=== PATIENT | female | born 1975 | race Caucasian/White ===

== ENCOUNTER 2017-03-27 07:56 | Emergency (ER) | payer MEDICAID ==
[~2017-03-27] VITALS: Ht 175.3 cm; Wt 90.3 kg
[2017-03-27] MEDS ORDERED: KETOROLAC 30 MG/1 ML ONE (08:48)
[2017-03-27] MEDS ORDERED: DIAZEPAM 5 MG TABLET ONE (08:48)
[2017-03-27] MEDS ORDERED: DIAZEPAM 5 MG TABLET PO ONE (09:00)
[2017-03-27] MEDS ORDERED: KETOROLAC 30 MG/1 ML IM ONE (09:00)
[2017-03-27 10:12] VITALS: BP 137/72
== END 2017-03-27 10:14 | disposition home or self-care (01) ==
LOC: ED 09:28
DX: S43.401A Unspecified sprain of right shoulder joint, initial encounter (principal); E11.9 Type 2 diabetes mellitus without complications; W19.XXXA Unspecified fall, initial encounter; Y93.89 Activity, other specified; Y92.009 Unspecified place in unspecified non-institutional (private) residence as the place of occurrence of the external cause; Y99.9 Unspecified external cause status
CPT/HCPCS: 73030; 96372; 99284; J1885